=== PATIENT | female | born 1975 | race American Indian/Alaskan Native ===

== ENCOUNTER 2018-11-15 14:57 | Outpatient (CLI) | payer OTHER | END 2018-11-15 14:58 | disposition home or self-care (01) | LOC: LABHHL 14:57 | PROVIDERS: ATTEND Surgery | DX: N64.1 Fat necrosis of breast (principal) | CPT/HCPCS: 88305 ==

== ENCOUNTER 2019-03-06 07:34 | Day surgery (SDC) | payer OTHER ==
[~2019-03-06 07:34] MED LIST: ANCEF/STERILE WATER 2 GM/20 ML 2 GM/20 ML SYRINGE IV NR; LACTATED RINGERS 1,000 ML IV SCH; VERSED IV NR
[2019-03-06] MEDS ORDERED: XYLOCAINE 1% 20 mL ONE ×2 (08:22→10:53)
--- NOTE | 2019-03-06 09:08 | Anesthesia Consultation ---
Anesthesia Consult and Med Hx Date of service: 03/06/19 - Airway Anesthetic Teeth Evaluation: Good ROM Head & Neck: Adequate Mental/Hyoid Distance: Adequate Mallampati Class: Class II Intubation Access Assessment: Good - Pulmonary Exam CTA: Yes - Cardiac Exam Cardiac Exam: RRR - Pre-Operative Health Status ASA Pre-Surgery Classification: ASA2 Proposed Anesthetic Plan: General - Central Nervous System Hx Psychiatric Problems: No - Hematic Hx Sickle Cell Disease: Yes (TRAIT) - Other Systems Hx Alcohol Use: Yes (OCCA) Hx Substance Use: No
--- NOTE | 2019-03-06 09:09 | Anesthesia Day of Surgery ---
Anesthesia Day of Surgery - Day of Surgery Patient Examined: Yes Patient H&P Reviewed: Yes Patient is NPO: Yes
--- NOTE | 2019-03-06 10:00 | Mammography Report ---
MAMMOGRAPHIC NEEDLE LOCALIZATION AND HOOKWIRE PLACEMENT LEFT BREAST CLINICAL: Left breast atypia. FINDINGS: Using mammographic guidance and 1% lidocaine local anesthesia a 5.0cm Richardson wire was plac ed from a lateral approach to localize a spiral biopsy clip. Satisfactory placement of the hookwire w as confirmed with orthogonal views and the needle was removed. The patient tolerated the procedure we ll and there were no apparent complications. IMPRESSION: Uncomplicated needle localization and hookwire placement left breast. Signer Name: Josue Solomon MD Signed: 03/06/2019 9:55 AM Workstation Name: [id number]
[2019-03-06] MEDS ORDERED: DIPRIVAN 10 MG/ML IV ONE (10:27)
[2019-03-06] MEDS ORDERED: SUBLIMAZE ONE (10:27)
[2019-03-06] MEDS ORDERED: MARCAINE 0.25% INFILTRATI ONE (10:53)
[2019-03-06] MEDS ORDERED: DECADRON ONE ×2 (11:26→11:30)
[2019-03-06] MEDS ORDERED: ZOFRAN ONE (11:28)
[2019-03-06] MEDS ORDERED: MARCAINE 0.5% INFILTRATI ONE ×2 (11:37)
[2019-03-06] MEDS ORDERED: NACL 0.9% IR ONE (11:38)
[2019-03-06] MEDS ORDERED: XYLOCAINE 1% 20 mL INFILTRATI ONE (11:38)
--- NOTE | 2019-03-06 13:02 | Operative Report ---
Operative Report Operative Report: Operative Report: March 06, 2019 Preoperative diagnosis: Left breast atypia of the upper outer quadrant Postoperative diagnosis: Same Procedure: Left needle localization excisional biopsy of the upper outer quadrant Surgeon: Liza Arellano MD Bag Hanger: Kaykay Kumar MD Anesthesia: General Findings: Left wire and clip present within radiograph specimen Complications: None EBL: 25-50 cc Disposition: PACU in good condition Indications for operative procedure: This is a 43 year old lady with left breast atypia, recent ultrasound findings of area of patient's pain at the 3:00 position 5 cm from the nipple a hypoechoic shadowing mass of 14 mm. Ultrasound guided needle core biopsy performed with findings of fat necrosis and single focus of detached atypical cells. Recommendations are to proceed with an excisional biopsy to rule out malignancy. She wished to proceed with the above procedure. Procedure in detail: The patient was taken to radiology for wire placement for localization. Patient was then taken to the operating room. Gen. anesthesia was administered. The wire was identified. Timeout was performed. Attention was then taken towards the left breast. Ultrasound was used to aid in marking the area of incision. A 3:00 lateral breast incision was made with a 15 blade knife and dissection taken down to subcutaneous tissues. First began raising of the superior flap with removal of the wire from the skin with dissection take down to the pectoralis muscle, followed by raising of the inferior flap, medial flap and lateral flap with all flaps taken down posteriorly. The breast area of concern was appropriately removed posteriorly with the aid of the Bovie cautery. The wire was not encountered. Specimen was marked and then sent to pathology and radiology; radiograph specimen with wire and clip present. Breast cavity was irrigated and hemostasis was obtained. The posterior deep breast tissues were approximated and closed using interrupted 3-0 Vicryl. The subcutaneous tissues were approximated and closed using interrupted 3-0 Vicryl followed by closing of the skin with a running 4-0 Monocryl and skin affix. The patient tolerated surgery very well and she was awaken from anesthesia without any complication and transported to PACU in good condition.
--- NOTE | 2019-03-06 13:03 | Short Stay Summary ---
Short Stay Documentation Date of service: 03/06/19 - History H&P: obtained from office - Allergies and Medications Current Medications: Allergies No Known Allergies Allergy (Verified 02/28/19 10:28) Home Medications Medication Instructions Recorded Confirmed Last Taken Type Milk Thistle/Nac/Dandel/[place] 1 each PO DAILY 02/28/19 03/06/19 02/25/19 09:00 History [Liver Complex Tablet] HYDROcodone/APAP 5-325 [[place] 1 each PO Q6HR PRN #12 tablet 03/06/19 Unknown Rx 5/325] Active Medications Cefazolin Sodium (Ancef/Sterile Water 2 Gm/20 Ml) 2 gm in 20 mls @ 80 mls/hr IV PREOP NR; Protocol Stop: 03/06/19 23:59 Lactated Ringer's (Lactated Ringers) 1,000 mls @ 100 mls/hr IV DIRECT DANETTE Last Admin: 03/06/19 09:00 Dose: 100 mls/hr Documented by: Midazolam HCl (Versed) 2 mg IV PREOP NR Stop: 03/06/19 21:00 Last Admin: 03/06/19 09:07 Dose: 2 mg Documented by: - Brief post op/procedure progress note Date of procedure: 03/06/19 Pre-op diagnosis: Left Breast Atypia Post-op diagnosis: same Procedure: Left Breast Needle Localized Excisional Biopsy Anesthesia: GETA Surgeon: TRAN ROMAN Desktop Publishing Specialist: SOLEDAD SYLVESTER ([facility]) Estimated blood loss: minimal Pathology: list Specimen disposition: to lab - Disposition Condition at discharge: Stable Disposition: DC-01 TO HOME OR SELFCARE Short Stay Discharge Plan Activity: no driving until cleared by PCP Weight Bearing Status: Full Weight Bearing Diet: regular Wound: keep clean and dry, per your surgeon's advice (No showering for 48 hours; no pools, no lakes, no baths), other (No showering for 48 hours; no pools, no lakes, no baths) Special Instructions: no heavy lifting (until cleared by Surgeon) Follow up with: TRAN ROMAN MD [Staff Physician] - 7 Days Prescriptions: HYDROcodone/APAP 5-325 [[place] 5/325] 1 each PO Q6HR PRN #12 tablet PRN Reason: Pain
[2019-03-06] MEDS ORDERED: ZOFRAN IV PRN (13:11)
[2019-03-06] MEDS: DILAUDID IV PRN ×2 (13:15→13:25)
--- NOTE | 2019-03-06 13:24 | Mammography Report ---
SPECIMEN RADIOGRAPH LEFT BREAST INDICATION: POST EXC BX. Left breast atypia. COMPARISON: 11/15/2018 mammogram FINDINGS: A localizer clip and a hookwire are identified within the specimen. IMPRESSION: 1. Excision of the targeted lesion.. Signer Name: Josue Solomon MD Signed: 03/06/2019 1:19 PM Workstation Name: [id number]
[2019-03-06 14:00] VITALS: BP 123/47
--- NOTE | 2019-03-06 17:51 | Post Anesthesia Evaluation ---
- Post Anesthesia Evaluation Patient Participated: Yes Airway Patent: Yes Stable Respiratory Function: Yes Nausea/Vomiting: No Temp > 96.8F: Yes Pain Manageable: Yes Adequeate Hydration: Yes Anesthesia Complications: No Block Receding Appropriately: Not Applicable Patient on Ventilator: No
== END 2019-03-06 14:30 | disposition home or self-care (01) ==
LOC: OR 07:34
PROVIDERS: ATTEND Surgery
DX: N64.89 Other specified disorders of breast (principal); N60.12 Diffuse cystic mastopathy of left breast; R92.0 Mammographic microcalcification found on diagnostic imaging of breast; Z79.899 Other long term (current) drug therapy; Z98.51 Tubal ligation status; Z72.89 Other problems related to lifestyle; Z80.8 Family history of malignant neoplasm of other organs or systems; Z80.1 Family history of malignant neoplasm of trachea, bronchus and lung; Z80.3 Family history of malignant neoplasm of breast; Z98.890 Other specified postprocedural states
CPT/HCPCS: 19125; 19281; 76098; 88307; J0690; J1100; J1170; J2250; J2405; J2704; J3010; J7120